=== PATIENT | female | born 1950 | race African-American/Black ===

== ENCOUNTER 2019-03-23 12:46 | Emergency (ER) | payer MEDICARE, MEDICAID ==
[~2019-03-23] VITALS: Ht 160 cm; Wt 108.0 kg
[2019-03-23] MEDS ORDERED: VANCOMYCIN 1 G PREMIX 200 ML IV STA (13:59)
[2019-03-23] MEDS ORDERED: OXYCODONE HCL/ACETAMINOPHEN 5/325MG TABLET PO ONE (16:45)
[2019-03-23 16:55] VITALS: BP 114/69
== END 2019-03-23 17:20 | disposition home or self-care (01) ==
LOC: ER 12:46
DX: S30.861A Insect bite (nonvenomous) of abdominal wall, initial encounter (principal); L03.311 Cellulitis of abdominal wall; W57.XXXA Bitten or stung by nonvenomous insect and other nonvenomous arthropods, initial encounter; Y93.89 Activity, other specified; Y92.89 Other specified places as the place of occurrence of the external cause; I10 Essential (primary) hypertension
CPT/HCPCS: 96365; 96366; 99283; J3370

== ENCOUNTER 2019-03-27 13:02 | Emergency (ER) | payer MEDICARE, MEDICAID ==
[~2019-03-27] VITALS: Ht 160 cm; Wt 108.0 kg
[2019-03-27] MEDS ORDERED: VANCOMYCIN 1 G PREMIX 200 ML IV SCH (14:15)
[2019-03-27 14:45] LABS: BASOPHILS % 0.6 % (0.0-2.0); EOSINOPHILS % 0.8 % (0.0-5.0); HEMATOCRIT. 35.4 % (36.0-48.0); LYMPHOCYTES % 12.3 % (20.0-50.0); MEAN CORPUSCULAR HEMOGLOBIN 31.7 pg (28.0-32.0); MEAN CORPUSCULAR VOLUME 93.6 fL (81.0-99.0); MEAN PLATELET VOLUME 7.9 fl (7.4-10.4); MONOCYTES % 7.7 % (2.0-8.0); NEUTROPHILS % 78.6 % (40.0-76.0); PLATELET 528 x1000/uL (130-400); RED BLOOD CELL COUNT 3.78 mill/uL (4.2-5.4); RED CELL DISTRIBUTION WIDTH 14.2 % (11.6-14.6)
[2019-03-27 14:48] LABS: CHLORIDE 94 mEq/L (98-107)
[2019-03-27] MEDS ORDERED: MORPHINE SULFATE 4 MG/ML CPJ (NOT FOR IM USE) IV ONE (15:15)
[2019-03-27] MEDS ORDERED: LIDOCAINE HCL/EPINEPHRINE 1%-EPI 1:100,000 30 ML VIAL INFIL ONE (17:15)
[2019-03-27] MEDS ORDERED: LIDOCAINE HCL/EPINEPHRINE 1%-EPI 1:100,000 20 ML VIAL INFIL NR (17:45)
[2019-03-27] MEDS ORDERED: IBUPROFEN 600MG TABLET PO ONE (18:00)
[2019-03-27 18:21] VITALS: BP 119/60
== END 2019-03-27 18:26 | disposition left against medical advice (07) ==
LOC: ER 13:02
DX: L03.312 Cellulitis of back [any part except buttock and flank] (principal)
CPT/HCPCS: 10060; 36415; 74176; 80053; 83605; 85025; 85610; 87040; 93005; 96374; 96375; 99284; J2270; J3370; J3490

== ENCOUNTER 2019-03-29 11:37 | Emergency (ER) | payer MEDICARE, MEDICAID ==
[~2019-03-29] VITALS: Ht 165.1 cm; Wt 120.0 kg
[2019-03-29 12:13] VITALS: BP 175/74
== END 2019-03-29 13:56 | disposition home or self-care (01) ==
LOC: ER 11:37
DX: Z48.00 Encounter for change or removal of nonsurgical wound dressing (principal); L02.212 Cutaneous abscess of back [any part, except buttock and flank]
CPT/HCPCS: 99281